=== PATIENT | female | born 1930 | race Caucasian/White ===

== ENCOUNTER → 2017-03-06 | Outpatient (CLI) | payer OTHER ==
[~2017-03-06] MED LIST: ACET-1256 PO; BENA1TAB19 PO; CALC1TAB9 PO; CHOL100040 PO; OXYB5TAB74 PO; POLY99.02 OP; SIMV10TA2 PO
--- NOTE | 2017-03-06 16:07 | MAMMOGRAPHY REPORT ---
BILATERAL DIGITAL SCREENING MAMMOGRAM TOMOSYNTHESIS WITH CAD: 03/06/2017 CLINICAL HISTORY: Routine screening. Patient has no complaints. TECHNIQUE: Breast tomosynthesis in addition to standard 2D mammography was performed. Current study was also evaluated with a Computer Aided Detection (CAD) system. COMPARISON: Comparison is made to exams dated: 03/16/2016 mammogram, 03/03/2016 mammogram, 02/27/2015 m ammogram, 02/26/2014 mammogram, 02/25/2013 mammogram, and 02/23/2012 mammogram - [facility]. BREAST COMPOSITION: There are scattered areas of fibroglandular density in both breasts. FINDINGS: There are mild vascular calcifications and stable punctate microcalcifications in the [place]. No new suspicious mass, architectural distortion or cluster of microcalcifications is seen. IMPRESSION: ACR BI-RADS CATEGORY 1: NEGATIVE There is no mammographic evidence of malignancy. A 1 year screening mammogram is recommended. The pa tient will receive written notification of the results. Approximately 10% of breast cancers are not detected with mammography. A negative mammographic report should not delay biopsy if a clinically suggestive mass is present. Frieda Morris M.D. ay/:03/06/2017 15:24:06 Research Administrator: Nica COLE(Josi)(Erin)(BD), [facility] letter sent: Normal 1/2 BI-RADS Code: ACR BI-RADS Category 1: Negative
== END | disposition home or self-care (01) ==
LOC: C.MAMM 13:23
PROVIDERS: ATTEND Family Medicine
DX: Z12.31 Encounter for screening mammogram for malignant neoplasm of breast (principal)

== ENCOUNTER 2017-05-14 11:14 | Inpatient (IN) | payer OTHER ==
[~2017-05-14] VITALS: Ht 165.1 cm; Wt 73.2 kg
[~2017-05-14 11:14] MED LIST changes: -BENA1TAB19 PO; +BENA1TAB53 PO; -CHOL100040 PO; +DTR/5 PO; -OXYB5TAB74 PO
[2017-05-14 11:18] VITALS: Ht 165.1 cm; Wt 73.2 kg
[2017-05-14] MEDS ORDERED: ACETAMINOPHEN 325 MG TAB PO STA (11:32)
[2017-05-14] MEDS ORDERED: METOCLOPRAMIDE HCL INJ 5 MG/ML 2 ML VIAL IV STA (11:32)
[2017-05-14] MEDS ORDERED: MAGNESIUM SULFATE 1GM / D5W 1 GM BAG IV STA (11:32)
[2017-05-14] MEDS ORDERED: DiphenhydrAMINE HCL 50 MG/ML VIAL IV STA (11:32)
--- NOTE | 2017-05-14 11:54 | EMERGENCY ROOM VISIT NOTE ---
History Report prepared by Lex: Robin Javier Under the Supervision of: Dr. Daren Whelan M.D. First contact with patient: 11:29 Chief Complaint: HEADACHE Stated Complaint: FLASHING IN EYES, RIOS, SLURRED SPEECH, DIFF. SPEAKI History of Present Illness The patient is an 87 year old white female with a past medical history of HTN and asthma who presents to the ED with a cc of worsening ocular migraine beginning last evening. The patient has tried Tylenol, but it has not helped. She typically ambulates and takes care of her on her own. Positive trouble speaking, decreased memory, chronic leg pain that results in intermittent right leg numbness, unsteady walking. Negative seeing flashes anymore, recent fall, missing medication doses, cough, fevers, chills. The patient began showing her associated symptoms 20 hours ago. Source of History: patient Onset: last evening Position: head (ocular) Quality: ache Timing: worsening Associated Symptoms: No fevers, No chills, No cough Note: Associated symptoms: trouble speaking, decreased memory, chronic leg pain that results in intermittent right leg numbness, unsteady walking. Denies: seeing flashes anymore, recent fall, missing medication doses. Review of Systems See HPI for pertinent positives and negatives. A total of ten systems were reviewed and were otherwise negative. Past Medical & Surgical Medical Problems: (1) Asthma (2) HTN (hypertension) (3) Stroke-like symptoms Family History Heart disease Hypertension Social History Smoking Status: Former Smoker Smokeless Tobacco Use: No Alcohol Use: occasionally Drug Use: none Marital Status: Housing Status: lives with significant other Occupation Status: retired Current/Historical Medications Scheduled Benazepril/Hctz (Lotensin Hct), 2 TAB PO QAM Cholecalciferol (Vitamin D-1000), 2 TAB PO DAILY Fluorouracil (Topical) (Fluorouracil), UD Oxybutynin Chloride (Oxybutynin Chloride ER), 5 MG PO DAILY Simvastatin (Simvastatin), 10 MG PO HS Scheduled PRN Acetaminophen (Tylenol), 1,000 MG PO DAILY PRN for Pain Clobetasol Propionate (Temovate), 1 APPLN TOP BID PRN for affected area Miscellaneous Medications Bevacizumab (Avastin) Allergies Coded Allergies: No Known Allergies (Unverified , 06/15/15) Physical Exam Vital Signs Date Time Temp Pulse Resp B/P (MAP) Pulse Ox O2 Delivery O2 Flow Rate FiO2 05/14/17 14:17 68 16 149/61 96 Room Air 05/14/17 12:32 66 16 141/75 95 Room Air 05/14/17 12:15 71 05/14/17 11:42 95 Room Air 05/14/17 11:18 36.5 71 18 153/73 95 Room Air Physical Exam GENERAL: Awake, alert, well-appearing, NAD HENT: Normocephalic, atraumatic. EYES: Normal conjunctiva. Sclera non-icteric. EMOI, gross vision intact, patient does not see floaters or flashing lights. NECK: Supple. No nuchal rigidity. FROM. RESPIRATORY: CTAB, no rhonchi, wheezing, crackles CARDIAC: RRR, no MRG ABDOMEN: Soft, NTND, BS+ MSK: No chest wall TTP, no LE edema NEURO: CN 2-12 intact, 5/5 upper and lower extremity strength, no dysmetria, no drift, good finger to nose, no sensory deficits. Dysarthria and word finding difficulty, ? RUE pronator drift. SKIN: No rash or jaundice noted. Medical Decision & Procedures ER Provider Diagnostic Interpretation: Radiology results as stated below per my review and radiologist interpretation: HEAD CTA HISTORY: HEADACHE TECHNIQUE: Multiaxial CT images of the head were performed both before and after the intravenous administration of contrast to evaluate the major cerebral vessels. Maximum intensity projection images were also obtained. A dose lowering technique was utilized adhering to the principles of ALARA. COMPARISON: None. FINDINGS: There is no mass, hematoma, midline shift, or acute infarct. Mild atrophy and microvascular ischemic changes. Of note, evaluation of the bilateral carotid siphons is nondiagnostic due to the motion artifact. Otherwise, the visualized intracranial internal carotid arteries, distal vertebral arteries, and basilar artery are widely patent. There is no significant stenosis, occlusion, or aneurysm seen within the bilateral ACAs, MCAs, or fish and wildlife technician. IMPRESSION: No significant stenosis, occlusion, or aneurysm within the [place]. Electronically signed by: Rigoberto Stanley M.D. 05/14/2017 1:58 PM Dictated Date/Time: 05/14/2017 1:53 PM NECK CTA HISTORY: Headache. TECHNIQUE: Multiaxial CT images of the neck were performed following the intravenous administration of contrast to evaluate the major cervical vessels. Maximum intensity projection images were also obtained. All measurements were calculated based on NASCET criteria. A dose lowering technique was utilized adhering to the principles of ALARA. COMPARISON STUDY: None. FINDINGS: The aortic arch and proximal great vessels are widely patent. Mild calcified plaque identified within the bilateral carotid bulbs. However, no severe stenosis, occlusion, or dissection within the bilateral common carotid, internal carotid, right vertebral arteries. Mild focal narrowing of approximately 40% within the mid left vertebral artery at the C5 level. IMPRESSION: No significant stenosis, occlusion, or dissection identified within the carotid or right vertebral arteries. Mild focal narrowing within the mid left vertebral the C5 level. Electronically signed by: Rigoberto Stanley M.D. 05/14/2017 2:03 PM Dictated Date/Time: 05/14/2017 1:59 PM CHEST ONE VIEW PORTABLE HISTORY: stroke symptoms COMPARISON: None. FINDINGS: The lungs are mildly hyperexpanded with apical predominance changes. The heart is normal in size. Bilateral lower lung zone interstitial thickening. No focal lung consolidations to suggest pneumonia. No pleural fusions. No pneumothorax. IMPRESSION: Bilateral lower lung zone interstitial thickening. This may be chronic or due to vascular crowding from the suspected emphysema. Otherwise, no acute process within the chest. Electronically signed by: Rigoberto Stanley M.D. 05/14/2017 12:25 PM Dictated Date/Time: 05/14/2017 12:24 PM Laboratory Results 05/14/17 11:25 Red Blood Count 4.29, Mean Corpuscular Volume 94.4, Mean Corpuscular Hemoglobin 32.2, Mean Corpuscular Hemoglobin Concent 34.1, Mean Platelet Volume 9.8, Neutrophils (%) (Auto) 65.5, Lymphocytes (%) (Auto) 20.3, Monocytes (%) (Auto) 9.3, Eosinophils (%) (Auto) 4.3, Basophils (%) (Auto) 0.4, Neutrophils # (Auto) 3.39, Lymphocytes # (Auto) 1.05, Monocytes # (Auto) 0.48, Eosinophils # (Auto) 0.22, Basophils # (Auto) 0.02 05/14/17 11:25 Test 05/14/17 11:25 05/14/17 11:42 White Blood Count 5.17 K/uL (4.8-10.8) Red Blood Count 4.29 M/uL (4.2-5.4) Hemoglobin 13.8 g/dL (12.0-16.0) Hematocrit 40.5 % (37-47) Mean Corpuscular Volume 94.4 fL (80-100) Mean Corpuscular Hemoglobin 32.2 pg (25-34) Mean Corpuscular Hemoglobin Concent 34.1 g/dl (32-36) Platelet Count 229 K/uL (130-400) Mean Platelet Volume 9.8 fL (7.4-10.4) Neutrophils (%) (Auto) 65.5 % Lymphocytes (%) (Auto) 20.3 % Monocytes (%) (Auto) 9.3 % Eosinophils (%) (Auto) 4.3 % Basophils (%) (Auto) 0.4 % Neutrophils # (Auto) 3.39 K/uL (1.4-6.5) Lymphocytes # (Auto) 1.05 K/uL (1.2-3.4) Monocytes # (Auto) 0.48 K/uL (0.11-0.59) Eosinophils # (Auto) 0.22 K/uL (0-0.5) Basophils # (Auto) 0.02 K/uL (0-0.2) RDW Standard Deviation 42.6 fL (36.4-46.3) RDW Coefficient of Variation 12.5 % (11.5-14.5) Immature Granulocyte % (Auto) 0.2 % Immature Granulocyte # (Auto) 0.01 K/uL (0.00-0.02) Prothrombin Time 10.7 SECONDS (9.0-12.0) Prothromb Time International Ratio 1.0 (0.9-1.1) Activated Partial Thromboplast Time 28.8 SECONDS (21.0-31.0) Partial Thromboplastin Ratio 1.1 Est Creatinine Clear Calc Drug Dose 31.5 ml/min Estimated GFR () 45.5 Estimated GFR (Non- 39.2 BUN/Creatinine Ratio 20.1 (10-20) Calcium Level 8.8 mg/dl (8.5-10.1) Total Bilirubin 0.6 mg/dl (0.2-1) Direct Bilirubin 0.1 mg/dl (0-0.2) Aspartate Amino Transf (AST/SGOT) 16 U/L (15-37) Alanine Aminotransferase (ALT/SGPT) 24 U/L (12-78) Alkaline Phosphatase 60 U/L (45-117) Total Protein 7.7 gm/dl (6.4-8.2) Albumin 3.8 gm/dl (3.4-5.0) Lipase 92 U/L (73-393) Lyme Disease IgG Antibody NEG (NEG) Lyme Disease IgM Antibody NEG (NEG) Bedside Hemoglobin 13.6 g/dl (12.0-16.0) Bedside Hematocrit 40 % (37-47) Bedside Sodium 138 mEq/L (135-144) Bedside Potassium 3.7 mEq/L (3.3-5.0) Bedside Chloride 100 mEq/L (101-112) Bedside Total CO2 27 mEq/l (24-31) Anion Gap 16.0 mmol/L (16-25) Bedside Blood Urea Nitrogen 24 mg/dl (7-18) Bedside Creatinine 1.3 mg/dl (0.6-1.3) Bedside Glucose (other) 97 mg/dl (70-99) Bedside Ionized Calcium ([place]) 1.15 mmol/l (1.12-1.32) Laboratory results reviewed by me Medications Administered Medications (Trade) Dose Ordered Sig/Aron Route Start Time Stop Time Status Last Admin Dose Admin Metoclopramide HCl (Reglan Inj) 10 mg NOW STAT IV 05/14/17 11:32 05/14/17 11:36 DC 05/14/17 11:43 10 MG Diphenhydramine HCl (Benadryl Inj) 25 mg NOW STAT IV 05/14/17 11:32 05/14/17 11:36 DC 05/14/17 11:43 25 MG Magnesium Sulfate (Magnesium Sulfate) 1 gm NOW STAT IV 05/14/17 11:32 05/14/17 11:36 DC 05/14/17 11:42 1 GM Acetaminophen (Tylenol Tab) 650 mg NOW STAT PO 05/14/17 11:32 05/14/17 11:36 DC 05/14/17 11:43 650 MG ECG Indication: other (stroke-like symptoms) Rate (beats per minute): 66 Rhythm: normal sinus Findings: T-wave inversion (lead III), other (normal intervals, pattern is consistent with incomplete RBBB, normal axis, no other STS or TWI) ED Course 1137: The patient was evaluated in room A09B. A complete history and physical exam was performed. 1407: Upon reexamination, the patient was resting, and her headache resolved. I discussed the test results and treatment plan with her. The patient will be evaluated for further management. 1415: I discussed the patient's case [facility] The patient will be evaluated for further management and care. Medical Decision The patient is an 87 year old white female with a past medical history of HTN and asthma who presents to the ED with a cc of worsening ocular migraine beginning last evening.Intracranial hemorrhage, intracranial mass, migraine headache, tension headache, sinusitis, meningitis She was seen and evaluated at the bedside. Per the patient and family member the patient was having was described as an ocular migraine which she has had in the past. Patient did see some flashing lights and stated thereafter had a bad headache. Patient did take some Tylenol which did not do much improved. Symptoms began around 5:00 last evening. Patient states that her headache is improved. But per the daughter the patient still had some word finding difficulties. Patient's neuro exam is fairly unremarkable with the exception of some questionable right upper extremity pronator drift as well as occasional word finding difficulty and dysarthria. Patient has no other issues or concerns. Patient did have blood work that was completed, EKG, chest x-ray, headache cocktail, CT brain, CTA head and neck. Patient as well as the window of getting TPA. The patient's EKG was nonischemic. Troponin negative. Patient's blood work otherwise fairly unremarkable. Her and is still pending. Patient did get a CT of the head and neck but did not get a non-con CT of the brain. Patient's CT of the head negative. Patient's CT neck did show some mild narrowing at around C5 the mid vertebral. Patient's headache had essentially resolved. Unsure as to whether not she had any continued symptoms of dysarthria and word finding difficulty. Given the concern for this and possible complicated migraine versus seizure versus acute or subacute stroke. I did speak with the hospitalist who agreed to evaluate and treat the patient. Medication Reconcilliation Current Medication List: was personally reviewed by me Blood Pressure Screening Patient's blood pressure: Elevated blood pressure Monitored by hospitalist. Consults Time Called: 1410 Consulting Physician: Dr. Berta Tristan Hospitalist Returned Call: [phone] I discussed the patient's case with [facility]. The patient will be evaluated for further management and care. Impression Primary Impression: Migraine Additional Impression: Dysarthria Scribe Attestation The scribe's documentation has been prepared under my direction and personally reviewed by me in its entirety. I confirm that the note above accurately reflects all work, treatment, procedures, and medical decision making performed by me. Departure Information Dispostion Being Evaluated By Hospitalist Referrals Yovani Schwartz M.D. (PCP) Patient Instructions My [facility] [address] Problem Qualifiers Primary Impression: Migraine Migraine type: unspecified Status migrainosus presence: without status migrainosus Intractability: not intractable Qualified Codes: G43.909 - Migraine, unspecified, not intractable, without status migrainosus
[2017-05-14 11:55] LABS: ISTAT CREATININE 1.3 mg/dl (0.6-1.3); ISTAT IONIZED CALCIUM 1.15 mmol/l (1.12-1.32); ISTAT POTASSIUM 3.7 mEq/L (3.3-5.0)
[2017-05-14 11:57] LABS: BASO % 0.4 %; BASO ABS # 0.02 K/uL (0-0.2); EOS % 4.3 %; EOS ABS # 0.22 K/uL (0-0.5); HEMATOCRIT 40.5 % (37-47); HEMOGLOBIN 13.8 g/dL (12.0-16.0); IG# 0.01 K/uL (0.00-0.02); LYMPH % 20.3 %; LYMPH ABS # 1.05 K/uL (1.2-3.4); MEAN CELL VOLUME 94.4 fL (80-100); MEAN CORPUSCULAR HEMOGLOBIN 32.2 pg (25-34); MEAN CORPUSCULAR HGB CONC 34.1 g/dl (32-36); MEAN PLATELET VOLUME 9.8 fL (7.4-10.4); MONO % 9.3 %; MONO ABS # 0.48 K/uL (0.11-0.59); NEUT % 65.5 %; NEUT ABS # 3.39 K/uL (1.4-6.5); PLATELET COUNT 229 K/uL (130-400); RED CELL DISTRIBUTION WIDTH CV 12.5 % (11.5-14.5); RED CELL DISTRIBUTION WIDTH SD 42.6 fL (36.4-46.3); WHITE BLOOD COUNT 5.17 K/uL (4.8-10.8)
[2017-05-14] MEDS ORDERED: OPTIRAY 320 IV PRN (12:00)
[2017-05-14 12:06] LABS: ALBUMIN 3.8 gm/dl (3.4-5.0); CALCIUM 8.8 mg/dl (8.5-10.1); CREATININE 1.22 mg/dl (0.60-1.20); POTASSIUM 3.7 mmol/L (3.5-5.1)
[2017-05-14 12:09] LABS: TOTAL PROTEIN 7.7 gm/dl (6.4-8.2)
[2017-05-14] MEDS ORDERED: NAPR1TAB9 PO (12:16)
--- NOTE | 2017-05-14 12:27 | DIAGNOSTIC IMAGING REPORT ---
CHEST ONE VIEW PORTABLE HISTORY: stroke symptoms COMPARISON: None. FINDINGS: The lungs are mildly hyperexpanded with apical predominance changes. The heart is normal in size. Bilateral lower lung zone interstitial thickening. No focal lung consolidations to suggest pneumonia. No pleural fusions. No pneumothorax. IMPRESSION: Bilateral lower lung zone interstitial thickening. This may be chronic or due to vascular crowding from the suspected emphysema. Otherwise, no acute process within the chest. Electronically signed by: Rigoberto Stanley M.D. 05/14/2017 12:25 PM Dictated Date/Time: 05/14/2017 12:24 PM
[2017-05-14 12:29] LABS: PTT PATIENT 28.8 SECONDS (21.0-31.0)
--- NOTE | 2017-05-14 14:00 | DIAGNOSTIC IMAGING REPORT ---
HEAD CTA HISTORY: HEADACHE TECHNIQUE: Multiaxial CT images of the head were performed both before and after the intravenous administration of contrast to evaluate the major cerebral vessels. Maximum intensity projection images were also obtained. A dose lowering technique was utilized adhering to the principles of ALARA. COMPARISON: None. FINDINGS: There is no mass, hematoma, midline shift, or acute infarct. Mild atrophy and microvascular ischemic changes. Of note, evaluation of the bilateral carotid siphons is nondiagnostic due to the motion artifact. Otherwise, the visualized intracranial internal carotid arteries, distal vertebral arteries, and basilar artery are widely patent. There is no significant stenosis, occlusion, or aneurysm seen within the bilateral ACAs, MCAs, or manager performance. IMPRESSION: No significant stenosis, occlusion, or aneurysm within the [place]. Electronically signed by: Rigoberto Stanley M.D. 05/14/2017 1:58 PM Dictated Date/Time: 05/14/2017 1:53 PM
--- NOTE | 2017-05-14 14:05 | DIAGNOSTIC IMAGING REPORT ---
NECK CTA HISTORY: Headache. TECHNIQUE: Multiaxial CT images of the neck were performed following the intravenous administration of contrast to evaluate the major cervical vessels. Maximum intensity projection images were also obtained. All measurements were calculated based on NASCET criteria. A dose lowering technique was utilized adhering to the principles of ALARA. COMPARISON STUDY: None. FINDINGS: The aortic arch and proximal great vessels are widely patent. Mild calcified plaque identified within the bilateral carotid bulbs. However, no severe stenosis, occlusion, or dissection within the bilateral common carotid, internal carotid, right vertebral arteries. Mild focal narrowing of approximately 40% within the mid left vertebral artery at the C5 level. IMPRESSION: No significant stenosis, occlusion, or dissection identified within the carotid or right vertebral arteries. Mild focal narrowing within the mid left vertebral the C5 level. Electronically signed by: Rigoberto Stanley M.D. 05/14/2017 2:03 PM Dictated Date/Time: 05/14/2017 1:59 PM
[2017-05-14 15:35] VITALS: BP 158/73; PULSE 65; TEMP 36.6; O2SAT 95; BMI 27.1
--- NOTE | 2017-05-14 15:35 | NUR ---
A/ID: 87 year old female in ED. c/o headache. NIH = 0. Passed dysphagia screen in ED. Possible admission/observation. Admission Assessment done. Code Word/Fall Agreement reviewed with patient and daughter and completed. Continued care in ED by MARCELLE Romero.
[2017-05-14] MEDS ORDERED: [UNRECOGNIZED DRUG - CODE] (15:41)
[2017-05-14] MEDS ORDERED: PHARMACIST DISCHARGE MED REC CONSULT PRN (15:45)
--- NOTE | 2017-05-14 15:49 | History and Physical ---
History & Physical Date & Time of Service: May 14, 2017 at 15:48 Chief Complaint: Flashing In Eyes, Broderick, Slurred Speech, Diff. Speaki Primary Care Physician: Yovani Schwartz M.D. History of Present Illness Source: patient, family, clinic records, hospital records 87 year old female with a past medical history of HTN, asthma, migraine presents to the ED with c/o of worsening ocular migraine that starting last night. Pt said that she has been having severe headache associated with vision disturbance. She said that headache located in her frontal area, 10/10, squeezing like. She said that she does have history of migraine associated with vision flashing, but she said that this episode is worst than her usual one. Pt said that she also had a difficulty to formulate world. Daughter said that her speech was gargle. Pt said that she took tylenol for the headache with no relief. She typically ambulates and takes care of her on her own. but lately she has been feeling weak, decreased memory. She does complaint of chronic right LE pain that seems to get worst and associated with numbness. Denies any chest pain, palpitation, dizziness, dysuria, palpitation and SOB. Past Medical/Surgical History Medical Problems: (1) Asthma Status: Chronic (2) HTN (hypertension) Status: Chronic Family History Heart disease Hypertension Social History Smoking Status: Former Smoker Smokeless Tobacco Use: No Drug Use: none Marital Status: Occupational Status: retired Multi-Drug Resistant Organisms History of MDRO: No Allergies Coded Allergies: No Known Allergies (Unverified , 06/15/15) Home Medications Scheduled Benazepril/Hctz (Lotensin Hct), 2 TAB PO QAM Cholecalciferol (Vitamin D-1000), 2 TAB PO DAILY Fluorouracil (Topical) (Fluorouracil), UD Oxybutynin Chloride (Oxybutynin Chloride ER), 5 MG PO DAILY Simvastatin (Simvastatin), 10 MG PO HS Scheduled PRN Acetaminophen (Tylenol), 1,000 MG PO DAILY PRN for Pain Clobetasol Propionate (Temovate), 1 APPLN TOP BID PRN for affected area Miscellaneous Medications Bevacizumab (Avastin) Review of Systems Constitutional: No fever, No chills Eyes: + worsening of vision, No discharge ENT: No nasal symptoms, No sore throat Respiratory: No cough, No sputum, No wheezing, No shortness of breath Cardiovascular: No chest pain, No claudication, No palpitations Abdomen: No pain, No nausea, No vomiting Musculoskeletal: + joint pain, No calf pain Genitourinary - Female: No dysuria, No urinary frequency Neurologic: + memory loss, + weakness, + numbness/tingling, + balance problems Psychiatric: No substance abuse Endocrine: + fatigue Hematologic / Lymphatic: No abnormal bleeding/bruising Integumentary: No rash, No itch Physical Exam Vital Signs Date Time Temp Pulse Resp B/P (MAP) Pulse Ox O2 Delivery O2 Flow Rate FiO2 05/14/17 14:17 68 16 149/61 96 Room Air 05/14/17 12:32 66 16 141/75 95 Room Air 05/14/17 12:15 71 05/14/17 11:42 95 Room Air 05/14/17 11:18 36.5 71 18 153/73 95 Room Air General Appearance: WD/WN, no apparent distress Head: normocephalic, atraumatic Eyes: PERRL, EOMI ENT: normal ENT inspection Neck: no JVD, trachea midline Respiratory/Chest: lungs clear, no respiratory distress, no accessory muscle use Cardiovascular: regular rate, rhythm, no JVD Abdomen/GI: normal bowel sounds, non tender Back: no CVA tenderness Extremities/Musculoskelatal: no calf tenderness Neurologic/Psych: no motor/sensory deficits, alert, oriented x 3 Skin: warm/dry, no rash Diagnostics Laboratory Results Results Past 24 Hours Test 05/14/17 11:25 05/14/17 11:32 05/14/17 11:42 05/14/17 14:04 Range/Units White Blood Count 5.17 4.8-10.8 K/uL Red Blood Count 4.29 4.2-5.4 M/uL Hemoglobin 13.8 12.0-16.0 g/dL Hematocrit 40.5 37-47 % Mean Corpuscular Volume 94.4 80-100 fL Mean Corpuscular Hemoglobin 32.2 25-34 pg Mean Corpuscular Hemoglobin Concent 34.1 32-36 g/dl Platelet Count 229 130-400 K/uL Mean Platelet Volume 9.8 7.4-10.4 fL Neutrophils (%) (Auto) 65.5 % Lymphocytes (%) (Auto) 20.3 % Monocytes (%) (Auto) 9.3 % Eosinophils (%) (Auto) 4.3 % Basophils (%) (Auto) 0.4 % Neutrophils # (Auto) 3.39 1.4-6.5 K/uL Lymphocytes # (Auto) 1.05 1.2-3.4 K/uL Monocytes # (Auto) 0.48 0.11-0.59 K/uL Eosinophils # (Auto) 0.22 0-0.5 K/uL Basophils # (Auto) 0.02 0-0.2 K/uL RDW Standard Deviation 42.6 36.4-46.3 fL RDW Coefficient of Variation 12.5 11.5-14.5 % Immature Granulocyte % (Auto) 0.2 % Immature Granulocyte # (Auto) 0.01 0.00-0.02 K/uL Prothrombin Time 10.7 9.0-12.0 SECONDS Prothromb Time International Ratio 1.0 0.9-1.1 Activated Partial Thromboplast Time 28.8 21.0-31.0 SECONDS Partial Thromboplastin Ratio 1.1 Sodium Level 137 136-145 mmol/L Potassium Level 3.7 3.5-5.1 mmol/L Chloride Level 101 98-107 mmol/L Carbon Dioxide Level 28 21-32 mmol/L Anion Gap 8.0 16.0 16-25 mmol/L Blood Urea Nitrogen 25 7-18 mg/dl Creatinine 1.22 0.60-1.20 mg/dl Est Creatinine Clear Calc Drug Dose 31.5 ml/min Estimated GFR () 45.5 Estimated GFR (Non- 39.2 BUN/Creatinine Ratio 20.1 10-20 Random Glucose 98 70-99 mg/dl Calcium Level 8.8 8.5-10.1 mg/dl Total Bilirubin 0.6 0.2-1 mg/dl Direct Bilirubin 0.1 0-0.2 mg/dl Aspartate Amino Transf (AST/SGOT) 16 15-37 U/L Alanine Aminotransferase (ALT/SGPT) 24 12-78 U/L Alkaline Phosphatase 60 45-117 U/L Total Protein 7.7 6.4-8.2 gm/dl Albumin 3.8 3.4-5.0 gm/dl Lipase 92 73-393 U/L Lyme Disease IgG Antibody NEG NEG Lyme Disease IgM Antibody NEG NEG Bedside Hemoglobin 13.6 12.0-16.0 g/dl Bedside Hematocrit 40 37-47 % Bedside Sodium 138 135-144 mEq/L Bedside Potassium 3.7 3.3-5.0 mEq/L Bedside Chloride 100 101-112 mEq/L Bedside Total CO2 27 24-31 mEq/l Bedside Blood Urea Nitrogen 24 7-18 mg/dl Bedside Creatinine 1.3 0.6-1.3 mg/dl Bedside Glucose (other) 97 70-99 mg/dl Bedside Ionized Calcium (Bartolome) 1.15 1.12-1.32 mmol/l Test 05/14/17 15:44 Range/Units Diagnostic Radiology HEAD CTA HISTORY: HEADACHE TECHNIQUE: Multiaxial CT images of the head were performed both before and after the intravenous administration of contrast to evaluate the major cerebral vessels. Maximum intensity projection images were also obtained. A dose lowering technique was utilized adhering to the principles of ALARA. COMPARISON: None. FINDINGS: There is no mass, hematoma, midline shift, or acute infarct. Mild atrophy and microvascular ischemic changes. Of note, evaluation of the bilateral carotid siphons is nondiagnostic due to the motion artifact. Otherwise, the visualized intracranial internal carotid arteries, distal vertebral arteries, and basilar artery are widely patent. There is no significant stenosis, occlusion, or aneurysm seen within the bilateral ACAs, MCAs, or manager council. IMPRESSION: No significant stenosis, occlusion, or aneurysm within the picayune of Hernandez. Electronically signed by: Rigoberto Stanley M.D. 05/14/2017 1:58 PM Dictated Date/Time: 05/14/2017 1:53 PM [~ rep ct add3]] NECK CTA HISTORY: Headache. TECHNIQUE: Multiaxial CT images of the neck were performed following the intravenous administration of contrast to evaluate the major cervical vessels. Maximum intensity projection images were also obtained. All measurements were calculated based on NASCET criteria. A dose lowering technique was utilized adhering to the principles of ALARA. COMPARISON STUDY: None. FINDINGS: The aortic arch and proximal great vessels are widely patent. Mild calcified plaque identified within the bilateral carotid bulbs. However, no severe stenosis, occlusion, or dissection within the bilateral common carotid, internal carotid, right vertebral arteries. Mild focal narrowing of approximately 40% within the mid left vertebral artery at the C5 level. IMPRESSION: No significant stenosis, occlusion, or dissection identified within the carotid or right vertebral arteries. Mild focal narrowing within the mid left vertebral the C5 level. Electronically signed by: Rigoberto Stanley M.D. 05/14/2017 2:03 PM Dictated Date/Time: 05/14/2017 1:59 PM Impression Assessment and Plan Stroke like symptoms Possible related to migraine vs TIA CTA head showed no significant stenosis, occlusion, or dissection identified within the carotid or right vertebral arteries. No focal neuro deficit on exam Will get an MRI of the head for completion of the stroke work up Will do neuro check EKG showed NSR with no ST changes Start on aspirin 81 I cannot find any echo on her will get an echo No Plavix for now Continue statin Neuro consult PT/OT/speech Monitor in telemetry fall preacution Headache Will do tylenol PRN Check ESR CKD stage 3 Creatine 1.2 Continue monitor BMP HTN Continue BP meds Monitor BP Asthma No on any med Stable Dyslipidemia Continue statin DVT px on heparin sub CODE STATUS FULL CODE Level of Care Telemetry Resuscitation Status FULL RESUSCITATION VTE Prophylaxis VTE Risk Assessment Done? Y/N: Yes Risk Level: Moderate Given or contraindicated: Unfractionated heparin SQ
[2017-05-14 15:54] VITALS: O2SAT 95
--- NOTE | 2017-05-14 16:28 | NUR ---
A: Patient arrived to floor via litter by ed rn. VSS. Alert and oriented X4. Oriented to room and equipment. Monitor on. Daughter at bedside. Call hylton within reach. Verbalizes no needs at this time.
[2017-05-14] MEDS ORDERED: INFLUENZA VACCINE HIGH DOSE 65+ 0.5 ML SYR IM. ONE (18:15)
[2017-05-14] MEDS ORDERED: INFLUENZA ADMINISTRATION CHARGE ONE (18:15)
[2017-05-14] MEDS ORDERED: INFLUENZA VIRUS QUAD VACCINE 0.5 ML SYR IM. ONE (18:30)
[2017-05-14 19:17] VITALS: BP 172/77; PULSE 66; TEMP 36.5; O2SAT 97
--- NOTE | 2017-05-14 20:00 | NUR ---
A: Pt is AAO x 4, VSS on RA. OOB with supervision. NSR on monitor. No c/o chest pain, headache, or SOB. NIH Stroke scale is 0. Awaiting to go down for MRI. Will continue to monitor.
[2017-05-14] MEDS ORDERED: SIMVASTATIN 10 MG TAB PO SCH (21:00)
[2017-05-15] VITALS (7 sets, daily range): BP systolic 158–167; BP diastolic 65–86; PULSE 19–111; TEMP 36.2–36.6; O2SAT 91–96
--- NOTE | 2017-05-15 | NUR ---
A/ID: Pt is sleeping in bed, upon assessment. AAO x 4, VSS on RA. OOB with supervision. NSR on monitor. No c/o chest pain, headache, or SOB. NIH Stroke scale is 0. Anticipate to return home when medically stable. Will continue to monitor.
--- NOTE | 2017-05-15 04:00 | NUR ---
A: Pt is sleeping in bed, upon assessment. AAO x 4, VSS on RA. OOB with supervision. NSR on monitor. No c/o chest pain, headache, or SOB. NIH Stroke scale is 0. Will continue to monitor.
[2017-05-15 05:54] LABS: BASO % 0.9 %; BASO ABS # 0.04 K/uL (0-0.2); EOS ABS # 0.26 K/uL (0-0.5); HEMATOCRIT 38.2 % (37-47); HEMOGLOBIN 13.4 g/dL (12.0-16.0); IG# 0.01 K/uL (0.00-0.02); LYMPH % 25.4 %; MEAN CELL VOLUME 94.8 fL (80-100); MEAN CORPUSCULAR HEMOGLOBIN 33.3 pg (25-34); MEAN CORPUSCULAR HGB CONC 35.1 g/dl (32-36); MEAN PLATELET VOLUME 9.2 fL (7.4-10.4); MONO % 10.9 %; MONO ABS # 0.47 K/uL (0.11-0.59); NEUT % 56.6 %; NEUT ABS # 2.45 K/uL (1.4-6.5); PLATELET COUNT 194 K/uL (130-400); RED CELL DISTRIBUTION WIDTH CV 12.4 % (11.5-14.5); RED CELL DISTRIBUTION WIDTH SD 42.2 fL (36.4-46.3); WHITE BLOOD COUNT 4.33 K/uL (4.8-10.8)
--- NOTE | 2017-05-15 06:30 | DIAGNOSTIC IMAGING REPORT ---
BRAIN WITHOUT CONTRAST HISTORY: Mental status change Stroke like symptoms TECHNIQUE: Multiplanar multisequence MRI of the brain was performed without the use of contrast. COMPARISON STUDY: None. FINDINGS: There are no areas of restricted diffusion to suggest acute infarction. The midline structures are intact. The paranasal sinuses are clear. The mastoid air cells are clear. The ventricles and sulci are within normal limits for age. There is no mass, hematoma, midline shift. The major vascular flow-voids at the skull base are well maintained. Mild age-related atrophy and chronic small vessel change IMPRESSION: No acute intracranial abnormality. Mild age-related atrophy and chronic small vessel change The above report was generated using voice recognition software. It may contain grammatical, syntax or spelling errors. Electronically signed by: Kofi Schaffer M.D. 05/15/2017 6:28 AM Dictated Date/Time: 05/15/2017 6:26 AM
[2017-05-15 06:31] LABS: CALCIUM 8.7 mg/dl (8.5-10.1); CREATININE 1.07 mg/dl (0.60-1.20); POTASSIUM 3.4 mmol/L (3.5-5.1)
--- NOTE | 2017-05-15 08:00 | NUR ---
A: Patient admitted with stroke like symptoms. A&OX4. Denies pain, SOB, N/V. Skin intact. SL right forearm. Independent in the room. No edema, positive pulses. NSR on the monitor. Lungs are clear on room air. Pt is from home. Denies weakness this morning. Hourly rounding. Encouraged to ring for assistance. Will continue to monitor.
[2017-05-15] MEDS ORDERED: POTASSIUM CHLORIDE 20 MEQ TABCR PO ONE (08:15)
[2017-05-15 08:19] LABS: HEMOGLOBIN A1C 5.5 % (4.5-5.6)
[2017-05-15] MEDS ORDERED: ASPIRIN 81 MG ECTAB PO SCH (09:00)
[2017-05-15] MEDS ORDERED: BENAZEPRIL PO SCH (09:00)
[2017-05-15] MEDS ORDERED: HCTZ PO SCH (09:00)
[2017-05-15] MEDS ORDERED: ENALAPRIL MALEATE 10 MG TAB PO SCH (09:00)
[2017-05-15] MEDS ORDERED: OXYBUTYNIN CHLORIDE 5 MG TABCR PO SCH (09:00)
[2017-05-15] MEDS ORDERED: CHOLECALCIFEROL 1000 INTER.UNIT TAB PO SCH (09:00)
[2017-05-15] MEDS ORDERED: HYDROCHLOROTHIAZIDE 25 MG TAB PO SCH (09:00)
[2017-05-15] MEDS ORDERED: PERFLUTREN LIPID MICROSPHERE (DEFINITY) IV ONE (09:29)
--- NOTE | 2017-05-15 11:01 | NUR ---
Pastoral Care, consult received indicating druze beliefs affecting care. Spoke with pt and daughter. Pt is Baptism, belongs to [facility] [employer]. Pt undergoing tests, hopes to go home soon. I introduced our service, offered spiritual and emotional support, and assured them of my continuing availability and prayers on her behalf.
--- NOTE | 2017-05-15 12:00 | NUR ---
A: Patient is resting comfortably. A&OX4. Denies pain, SOB, N/V. Assessment complete, unchanged, see EMR. NSR on the monitor. No s/s of stroke this afternoon. Daughter is present. Hourly rounding. Encouraged to ring for assistance. Will continue to monitor.
[2017-05-15] MEDS ORDERED: CLONIDINE HCL 0.1 MG TAB PO PRN (13:30)
--- NOTE | 2017-05-15 13:52 | Progress Note ---
Medicine Progress Note Date & Time of Visit: May 15, 2017 at 13:28. Subjective Pt was seen and examined Sitting in chair comfortable with daughter at bedside Pt said that she feels fine She said that she does not have any headache She denies any vision changes She said that her speech back to normal She would like to go home today Denies any chest pain, palpitation, dizziness and SOB Objective Last 8 Hrs Date Time Temp Pulse Resp B/P (MAP) Pulse Ox O2 Delivery O2 Flow Rate FiO2 05/15/17 12:00 Room Air 05/15/17 11:07 36.3 111 20 167/84 (111) 94 05/15/17 08:00 Room Air 05/15/17 07:51 36.4 71 20 164/84 (110) 94 Physical Exam: General- No acute distress Head- atraumatic Eyes- PERRL, EOMI ENT- oropharynx clear Neck- supple, no JVD Lungs- clear to auscultation Heart- regular rhythm Abdomen- normal bowel sounds, soft, nontender Extremities- no pretibial edema, no calf tenderness Neuro- alert, oriented x 3; PERRL, EOMI; no facial palsy; no dysarthria; motor 5 /5 bilaterally Skin- warm & dry Laboratory Results: Last 24 Hours Test 05/14/17 15:30 05/15/17 05:38 Urine Color YELLOW Urine Appearance CLEAR Urine pH 6.5 Urine Specific Thida 1.039 Urine Protein NEG Urine Glucose (UA) NEG Urine Ketones NEG Urine Occult Blood NEG Urine Nitrite NEG Urine Bilirubin NEG Urine Urobilinogen NEG Urine Leukocyte Esterase NEG White Blood Count 4.33 K/uL Red Blood Count 4.03 M/uL Hemoglobin 13.4 g/dL Hematocrit 38.2 % Mean Corpuscular Volume 94.8 fL Mean Corpuscular Hemoglobin 33.3 pg Mean Corpuscular Hemoglobin Concent 35.1 g/dl Platelet Count 194 K/uL Mean Platelet Volume 9.2 fL Neutrophils (%) (Auto) 56.6 % Lymphocytes (%) (Auto) 25.4 % Monocytes (%) (Auto) 10.9 % Eosinophils (%) (Auto) 6.0 % Basophils (%) (Auto) 0.9 % Neutrophils # (Auto) 2.45 K/uL Lymphocytes # (Auto) 1.10 K/uL Monocytes # (Auto) 0.47 K/uL Eosinophils # (Auto) 0.26 K/uL Basophils # (Auto) 0.04 K/uL RDW Standard Deviation 42.2 fL RDW Coefficient of Variation 12.4 % Immature Granulocyte % (Auto) 0.2 % Immature Granulocyte # (Auto) 0.01 K/uL Erythrocyte Sedimentation Rate 18 mm/hr Sodium Level 138 mmol/L Potassium Level 3.4 mmol/L Chloride Level 103 mmol/L Carbon Dioxide Level 26 mmol/L Anion Gap 9.0 mmol/L Blood Urea Nitrogen 21 mg/dl Creatinine 1.07 mg/dl Est Creatinine Clear Calc Drug Dose 35.9 ml/min Estimated GFR () 53.3 Estimated GFR (Non- 46.0 BUN/Creatinine Ratio 19.3 Random Glucose 95 mg/dl Estimated Average Glucose 111 mg/dl Hemoglobin A1c 5.5 % Calcium Level 8.7 mg/dl Triglycerides Level 126 mg/dl Cholesterol Level 172 mg/dl HDL Cholesterol 67 mg/dl LDL Cholesterol, Calculated 80 mg/dl VLDL Cholesterol, Calculated 25 mg/dl Cholesterol/HDL Ratio 2.6 Assessment & Plan Stroke like symptoms Mostly related to migraine CTA head showed no significant stenosis, occlusion, or dissection identified within the carotid or right vertebral arteries. MRI showed no acute intracranial abnormality No focal neuro deficit on exam during admission No arrhythmia on tele monitor EKG showed NSR with no ST changes Continue aspirin 81 and statin Continue PT/OT Fall precaution No Plavix for now Neuro consulted Clinically back to her baseline ECHO done showed * The left ventricular wall motion is normal. * There is mild concentric left ventricular hypertrophy. * Ejection Fraction = 65-70%. * Aortic valve sclerosis mild, without significant aortic valvular stenosis. * Otherwise , there is no signifiant valvular heart disease. Headache ESR normal Tylenol PRN Resolved CKD stage 3 Creatine 1.07 Stable HTN BP elevated Continue BP meds Clonidine 0.1 prn for BP above 165 Monitor BP Asthma No on any med Stable Dyslipidemia Continue statin DVT px on heparin sub CODE STATUS FULL CODE Disposition Plan to discharge home today Follow up with your PCP Dr. Schwartz on 05/18 @ 12:45 PM Consultants: neuro Current Inpatient Medications: Current Inpatient Medications Medications (Trade) Dose Ordered Sig/Aron Route Start Time Stop Time Status Last Admin Dose Admin Ioversol (Optiray 320) 111 ml UD PRN IV 05/14/17 12:00 05/18/17 11:59 Cholecalciferol (Vitamin D Tab) 2,000 inter.unit DAILY PO 05/15/17 09:00 06/14/17 08:59 05/15/17 07:47 2,000 INTER.UNIT Oxybutynin Chloride (Ditropan-Xl Tab) 5 mg DAILY PO 05/15/17 09:00 06/14/17 08:59 05/15/17 07:47 5 MG Simvastatin (Zocor Tab) 10 mg HS PO 05/14/17 21:00 06/13/17 20:59 05/14/17 20:41 10 MG Miscellaneous Information (Pharmacist Discharge Med Rec Consult) 1 ea UD PRN N/A 05/14/17 15:45 06/13/17 15:44 Enalapril Maleate (Vasotec Tab) 40 mg QAM PO 05/15/17 09:00 06/14/17 08:59 05/15/17 07:46 40 MG Hydrochlorothiazide (Hydrochlorothiazide Tab) 25 mg QAM PO 05/15/17 09:00 06/14/17 08:59 05/15/17 07:46 25 MG Aspirin (Ecotrin Tab) 81 mg QAM PO 05/15/17 09:00 06/14/17 08:59 05/15/17 08:10 81 MG Heparin Sodium (Porcine) (Heparin Sq 5000 Unit/0.5ml) 5,000 unit Q8 SQ 05/15/17 14:00 06/14/17 13:59
[2017-05-15] MEDS ORDERED: HEPARIN SOD 5000 UNIT/0.5 ML CARP SQ SCH (14:00)
--- NOTE | 2017-05-15 14:11 | NUR ---
Case Management- Consult for discharge planning, met with pt and daughter Marily to discuss needs. Pt lives with her in 1 story condo, no stairs. 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 Pt reports she ambulates with a cane on occasion, continues to drive. At this time pt and daughter feel she is able to return home without services, they have considered a slight increase in private duty hours when pt returns home. No needs identified thus far, pt is hopeful she will be discharged this afternoon.
--- NOTE | 2017-05-15 15:50 | NUR ---
A: Patient resting in room.Denies CP or SOB. Alert and oriented X4. VSS. NIH = 0. Tolerating diet. OOB independently. Call hylton within reach. Verbalizes no needs at this time.
--- NOTE | 2017-05-15 16:55 | ECHOCARDIOGRAM REPORT ---
*NOTICE TO RECEIVING [employer] This information is strictly Confidential and protected under [place] law. [place] law prohibits you from making any further disclosure of this information unless further disclosure is expressly permitted by the written consent of the person to whom it pertains or is authorized by law. A general authorization for the release of medical or other information is not sufficient for this purpose. Hospital accepts no responsibility if the information is made available to any other person, INCLUDING THE PATIENT. Interpretation Summary * The study was technically adequate. * -- Conclusions -- * The left ventricular wall motion is normal. * There is mild concentric left ventricular hypertrophy. * Ejection Fraction = 65-70%. * Aortic valve sclerosis mild, without significant aortic valvular stenosis. * Otherwise , there is no signifiant valvular heart disease. Procedure Details * A saline contrast injection was performed to assess for cardiac shunting. * The injection was performed through an intravenous line in the right arm. * The attending nurse who injected the saline contrast was MARCELLE DUNHAM. * A total of 10 cc of agitated saline was given. * A contrast injection of Definity was performed to improve assessment of LV function. * Contrast was injected into an intravenous site in the right arm. * One vial of Definity ultrasound contrast was diluted in normal saline to a total volume of 10 ml. A total of '2' ml of solution was administered during imaging. * Lot # [id number] of Definity utilized for procedure. * Expiration date JUN 05. * The attending nurse who injected the contrast agent was MARCELLE DUNHAM. * A complete two-dimensional transthoracic echocardiogram was performed (2D, M-mode, Doppler and color flow Doppler). Left Ventricle * The left ventricle is normal in size. * There is no LV mural thrombus. * There is mild concentric left ventricular hypertrophy. * Left ventricular systolic function is normal. * Ejection Fraction = 65-70%. * The left ventricular wall motion is normal. Right Ventricle * The right ventricle is normal size. * The right ventricular systolic function is normal as assessed by tricuspid annular plane systolic excursion (TAPSE) (normal >1.5 cm). Atria * The left atrial size is normal. * Right atrial size is normal. * There is no evidence of atrial septal defect, but resolution does not allow assessment for a patent foramen ovale. Mitral Valve * The mitral valve is normal. * There is no mitral valve stenosis. * Significant mitral regurgitation is absent. Tricuspid Valve * The tricuspid valve is normal. * There is no tricuspid stenosis. * Significant tricuspid regurgitation is absent. * Doppler findings do not suggest pulmonary hypertension. Aortic Valve * The aortic valve is trileaflet. * Aortic valve sclerosis mild, without significant aortic valvular stenosis. * Aortic stenosis is absent. * There is no significant aortic regurgitation. Pulmonic Valve * The pulmonary valve is inadequately visualized, but the Doppler data is adequate for interpretation. * Pulmonic stenosis is absent. * Mild pulmonic valvular regurgitation. Great Vessels * The aortic root and proximal ascending aorta are normal sized. Pericardium/Pleural * There is no pericardial effusion. Great Vessels * Normal inferior vena cava diameter and respiratory variation suggests normal central venous pressure. Left Ventricular Diastolic Function * Grade I diastolic dysfunction, (abnormal relaxation pattern). MMode 2D Measurements and Calculations IVSd 1.2 cm IVSs 2.0 cm LVIDd 3.4 cm LVIDs 1.8 cm LVPWd 1.3 cm LVPWs 2.3 cm IVS/LVPW 0.92 FS 47.4 % EDV(Teich) 46.9 ml ESV(Teich) 9.4 ml EF(Teich) 79.9 % EDV(cubed) 38.7 ml ESV(cubed) 5.6 ml EF(cubed) 85.5 % % IVS thick 66.1 % % LVPW thick 76.6 % LV mass(C)d 134.0 grams LV mass(C)dI 74.3 grams/m\S\2 LV mass(C)s 174.9 grams LV mass(C)sI 97.0 grams/m\S\2 SV(Teich) 37.5 ml SI(Teich) 20.8 ml/m\S\2 SV(cubed) 33.1 ml SI(cubed) 18.4 ml/m\S\2 Ao root diam 2.4 cm Ao root area 4.4 cm\S\2 LA dimension 3.3 cm LA/Ao 1.4 LVAd ap4 21.7 cm\S\2 LVLd ap4 7.1 cm EDV(MOD-sp4) 54.7 ml EDV(sp4-el) 56.2 ml LVAs ap4 10.6 cm\S\2 LVLs ap4 6.4 cm ESV(MOD-sp4) 15.6 ml ESV(sp4-el) 15.0 ml EF(MOD-sp4) 71.6 % EF(sp4-el) 73.4 % LVAd ap2 15.9 cm\S\2 LVLd ap2 6.9 cm EDV(MOD-sp2) 30.7 ml EDV(sp2-el) 31.0 ml LVAs ap2 8.2 cm\S\2 LVLs ap2 6.3 cm ESV(MOD-sp2) 10.9 ml ESV(sp2-el) 9.0 ml EF(MOD-sp2) 64.3 % EF(sp2-el) 70.9 % LVLd %diff -2.89 % EDV(MOD-bp) 41.7 ml LVLs %diff -0.85 % ESV(MOD-bp) 12.7 ml EF(MOD-bp) 69.4 % SV(MOD-sp4) 39.2 ml SI(MOD-sp4) 21.7 ml/m\S\2 SV(MOD-sp2) 19.7 ml SI(MOD-sp2) 10.9 ml/m\S\2 SV(MOD-bp) 28.9 ml SI(MOD-bp) 16.0 ml/m\S\2 SV(sp4-el) 41.3 ml SI(sp4-el) 22.9 ml/m\S\2 SV(sp2-el) 22.0 ml SI(sp2-el) 12.2 ml/m\S\2 Doppler Measurements and Calculations MV E max goldie 93.8 cm/sec MV A max goldie 98.7 cm/sec MV E/A 0.95 MV dec time 0.26 sec Ao V2 max 182.3 cm/sec Ao max PG 13.3 mmHg Ao max PG (full) 8.1 mmHg Ao V2 mean 121.2 cm/sec Ao mean PG 6.7 mmHg Ao mean PG (full) 4.2 mmHg Ao V2 VTI 42.1 cm LV V1 max PG 5.2 mmHg LV V1 mean PG 2.6 mmHg LV V1 max 113.8 cm/sec LV V1 mean 72.4 cm/sec LV V1 VTI 31.2 cm SV(Ao) 187.0 ml SI(Ao) 103.6 ml/m\S\2 TR max goldie 204.5 cm/sec
[2017-05-15] MEDS ORDERED: ASPI-320 PO (17:16)
--- NOTE | 2017-05-15 17:19 | Discharge Instructions ---
Discharge Instructions Date of Service May 15, 2017. Admission Reason for Admission: Stroke-Like Symptoms Discharge Discharge Diagnosis / Problem: Migraine/ Stroke like symptoms/ Hypertension Discharge Goals Goal(s): Decrease discomfort, Improve function, Improve disease control Activity Recommendations Activity Limitations: resume your previous activity (as tolerated ) . Instructions / Follow-Up Instructions / Follow-Up Discharge home today Follow up with your primary care provider Dr. Schwartz on 05/18 @ 12:45 PM Fall precaution Continue Physical therapy Use a walker to ambulate Monitor blood pressure Current Hospital Diet Patient's current hospital diet: AHA Diet (Heart Healthy) Discharge Diet Recommended Diet: AHA Diet (Heart Healthy) Pending Studies Studies pending at discharge: no Laboratory Results Hemoglobin A1c Test 05/15/17 05:38 Range/Units Estimated Average Glucose 111 mg/dl Hemoglobin A1c 5.5 4.5-5.6 % Lipid Panel Test 05/15/17 05:38 Range/Units Triglycerides Level 126 0-150 mg/dl Cholesterol Level 172 0-200 mg/dl HDL Cholesterol 67 mg/dl Cholesterol/HDL Ratio 2.6 LDL Cholesterol, Calculated 80 mg/dl Medical Emergencies . Who to Call and When: Medical Emergencies: If at any time you feel your situation is an emergency, please call 911 immediately. . Non-Emergent Contact Non-Emergency issues call your: Primary Care Provider Call Non-Emergent contact if: you have any medication questions . . "Provider Documentation" section prepared by Camden Pappas. . VTE Core Measure Inpt VTE Proph given/why not?: Unfractionated heparin SQ
--- NOTE | 2017-05-15 17:58 | NUR ---
A: Patient discharged with all belonging and daughter via wheelchair by volunteer. Discharge instructions given and patient/daughter verbalized understanding. Patient and daughter refused printed prescription for ASA 81mg.
--- NOTE | 2017-05-15 18:18 | CONSULTATION REPORT ---
DATE OF CONSULTATION: 05/15/2017 REQUESTING PHYSICIAN: Camden Pappas MD. HISTORY OF PRESENT ILLNESS: Evelyne is 87 years old patient of Dr. Yovani Schwartz who has a medical history of hypertension, asthma, ocular migraines and presented to the Emergency Room last night after having had a protracted migrainous aura initially manifested by her typical visual auras in the right hemifield but then progressing to involve speech with what sounds like a fluent aphasia and protracted headache. Much of this has cleared. The visual aura cleared quickly within 20-30 minutes as it typically does and language is beginning to clear up and this is not usually a manifestation of her migraines. She had a remote history of an aphasic episode probably 20 years ago without headache and is not clear what this was. Whatever the case, she is now better. The headache is gone. She is still confused. Workup has included an MRI showing only some small vessel disease of chronic type, nothing acute specifically in the left hemisphere. CTA is without any significant intracranial issues or extracranial disease other than a slight narrowing of the left vertebral at C5-C6 which is not relevant and an echocardiogram is pending. In addition to her other medical problems, she does have macular degeneration and needs injections done every 2 weeks. She has not been on aspirin for various reasons but I assume that one may be the fact that the risk of bleeding with injections is too high. MEDICAL HISTORY: Otherwise unremarkable. SOCIAL HISTORY: Reveals her to be a former smoker. She does not use ethanol. She is and is retired. ALLERGIES: She has allergies to no known medications. MEDICATIONS: Her current scheduled medications include Lotensin, vitamin D, fluorouracil to her various actinic keratoses, oxybutynin and simvastatin. She takes acetaminophen, clobetasol b.i.d. as needed and in the past has taken some nonsteroidal anti-inflammatory agents for pain, but not on a regular basis. REVIEW OF SYSTEMS: Besides the history of present illness, Noncontributory. Reveals no recent systemic illnesses, fevers, sweats, chills. No new issues referable to head, eyes, ears, nose and throat other than ocular migraine and macular degeneration, no cardiovascular, pulmonary, gastrointestinal, genitourinary, or musculoskeletal issues are reported. Neurologically, she is quite sharp, awake, alert, has no history of stroke other than perhaps set aphasic event he had 20 years ago and does have the ocular migraine which she has had on and off for years. None of these are not associated with headaches. There is a family history for same and her daughter. PHYSICAL EXAMINATION: VITAL SIGNS: She had a blood pressure of 149/61, pulse 68, respirations 16. She is well developed, well-nourished and appeared more youthful than her stated age normal. HEAD, EYES, EARS, NOSE AND THROAT: Normal. LUNGS: Clear. CARDIOVASCULAR: No cardiac murmurs. No carotid bruits were heard. ABDOMEN: Soft, nontender. SKIN: Legs were free of edema. There were good peripheral pulses today. NEUROLOGIC: She is awake, alert, oriented in 3 spheres. 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 She can name objects in the room, knows right and left, can repeat, can read, has no visual field cuts, has normal extraocular movements, normal facial motility and strength. Normal facial sensation. There is no drift or pronation sign. No cerebellar dysmetria. No tremor, tics, or choreiform activity. Reflexes are 1+ and symmetrical in lower extremities with her little hypoactive at the ankles. Toes are downgoing. No Pepe's signs are seen. Muscle strength testing had normal sensation, reveals some age dependent drop off of vibratory sense below the knees with proprioception, light touch, temperature and pinprick being largely preserved. At this point, I think this was a protracted migraine which progressed beyond its usual focus in the left posterior hemisphere more anteriorly into the speech area and became associated more of a headache than usual. Normally at her age with this type of history, I would recommend antiplatelet drugs, but we have a woman who gets intraocular or retrobulbar injections every 2 weeks and the risk of bleeding, I think during one of these procedures outweighs any theoretical benefit of antiplatelet drugs in a migraine patient. I have encouraged her; however, that every time she gets an ocular migraine that she probably take at least 2 regular aspirin just to provide some antiplatelet coverage. I think she is going to discharged if the echocardiogram shows no significant abnormalities. I will check back with her tomorrow, but otherwise will sign off the case and I do not think neurology needs to see her regularly unless the migrans become an issue and are becoming more frequent. MO
--- NOTE | 2017-05-17 10:33 | EDITING REQUIRED CODING QUERY ---
CODING QUERY To promote full compliance with coding requirements relating to patient care, provider participation is requested in all cases of investment broker uncertainty. Please assist us with the question(s) below: Coding Question(s): H&P states: Stroke like symptoms Possible related to migraine vs TIA TIA not mentioned again after that. Was this ruled out? Physician's Response(s): __x_ TIA ruled out ___ TIA still a differential diagnosis ___ Other (please specify) Thank you Suha Gloria Principal Diagnosis: "_that condition established after study, to be chiefly responsible for occasioning the admission of the patient to the hospital for care." Co-Existing Principal Diagnosis: "_when two or more diagnoses equally meet the criteria for principal diagnosis as determined by the circumstances of admission, diagnostic work up, and/or therapy provided, and the Alphabetic Index, Tabular List, or another coding guideline does not provide sequencing direction, any one of the diagnoses may be sequenced first." "When the physician has documented what appears to be a current diagnosis in the body of the record, but has not included the diagnosis in the final diagnostic statement, the physician should be asked whether the diagnosis should be added." (Source Coding [facility] 2 QTR90. p3-4)
--- NOTE | 2017-05-18 11:36 | Discharge Summary ---
Discharge Summary Date of Service May 18, 2017. Discharge Summary Admission Date: May 14, 2017 at 15:04 Discharge Date: May 15, 2017 Discharge Disposition: Home Principal Diagnosis: Stroke like symptoms Secondary Diagnoses/Problems: Headache CKD stage 3 HTN Asthma Dyslipidemia Procedures: [~ rep ct add3]] BRAIN WITHOUT CONTRAST HISTORY: Mental status change Stroke like symptoms TECHNIQUE: Multiplanar multisequence MRI of the brain was performed without the use of contrast. COMPARISON STUDY: None. FINDINGS: There are no areas of restricted diffusion to suggest acute infarction. The midline structures are intact. The paranasal sinuses are clear. The mastoid air cells are clear. The ventricles and sulci are within normal limits for age. There is no mass, hematoma, midline shift. The major vascular flow-voids at the skull base are well maintained. Mild age-related atrophy and chronic small vessel change IMPRESSION: No acute intracranial abnormality. Mild age-related atrophy and chronic small vessel change The above report was generated using voice recognition software. It may contain grammatical, syntax or spelling errors. Electronically signed by: Kofi Schaffer M.D. 05/15/2017 6:28 AM Dictated Date/Time: 05/15/2017 6:26 AM CHEST ONE VIEW PORTABLE HISTORY: stroke symptoms COMPARISON: None. FINDINGS: The lungs are mildly hyperexpanded with apical predominance changes. The heart is normal in size. Bilateral lower lung zone interstitial thickening. No focal lung consolidations to suggest pneumonia. No pleural fusions. No pneumothorax. IMPRESSION: Bilateral lower lung zone interstitial thickening. This may be chronic or due to vascular crowding from the suspected emphysema. Otherwise, no acute process within the chest. Electronically signed by: Rigoberto Stanley M.D. 05/14/2017 12:25 PM Dictated Date/Time: 05/14/2017 12:24 PM [~ rep ct add3]] NECK CTA HISTORY: Headache. TECHNIQUE: Multiaxial CT images of the neck were performed following the intravenous administration of contrast to evaluate the major cervical vessels. Maximum intensity projection images were also obtained. All measurements were calculated based on NASCET criteria. A dose lowering technique was utilized adhering to the principles of ALARA. COMPARISON STUDY: None. FINDINGS: The aortic arch and proximal great vessels are widely patent. Mild calcified plaque identified within the bilateral carotid bulbs. However, no severe stenosis, occlusion, or dissection within the bilateral common carotid, internal carotid, right vertebral arteries. Mild focal narrowing of approximately 40% within the mid left vertebral artery at the C5 level. IMPRESSION: No significant stenosis, occlusion, or dissection identified within the carotid or right vertebral arteries. Mild focal narrowing within the mid left vertebral the C5 level. Electronically signed by: Rigoberto Stanley M.D. 05/14/2017 2:03 PM Dictated Date/Time: 05/14/2017 1:59 PM HEAD CTA HISTORY: HEADACHE TECHNIQUE: Multiaxial CT images of the head were performed both before and after the intravenous administration of contrast to evaluate the major cerebral vessels. Maximum intensity projection images were also obtained. A dose lowering technique was utilized adhering to the principles of ALARA. COMPARISON: None. FINDINGS: There is no mass, hematoma, midline shift, or acute infarct. Mild atrophy and microvascular ischemic changes. Of note, evaluation of the bilateral carotid siphons is nondiagnostic due to the motion artifact. Otherwise, the visualized intracranial internal carotid arteries, distal vertebral arteries, and basilar artery are widely patent. There is no significant stenosis, occlusion, or aneurysm seen within the bilateral ACAs, MCAs, or cvicu rn. IMPRESSION: No significant stenosis, occlusion, or aneurysm within the [place]. Electronically signed by: Rigoberto Stanley M.D. 05/14/2017 1:58 PM Dictated Date/Time: 05/14/2017 1:53 PM ECHO Interpretation Summary * The study was technically adequate. * -- Conclusions -- * The left ventricular wall motion is normal. * There is mild concentric left ventricular hypertrophy. * Ejection Fraction = 65-70%. * Aortic valve sclerosis mild, without significant aortic valvular stenosis. * Otherwise , there is no signifiant valvular heart disease. Procedure Details * A saline contrast injection was performed to assess for cardiac shunting. * The injection was performed through an intravenous line in the right arm. * The attending nurse who injected the saline contrast was MARCELLE DUNHAM. * A total of 10 cc of agitated saline was given. * A contrast injection of Definity was performed to improve assessment of LV function. * Contrast was injected into an intravenous site in the right arm. * One vial of Definity ultrasound contrast was diluted in normal saline to a total volume of 10 ml. A total of '2' ml of solution was administered during imaging. * Lot # [id number] of Definity utilized for procedure. * Expiration date JUN 05. * The attending nurse who injected the contrast agent was MARCELLE DUNHAM. * A complete two-dimensional transthoracic echocardiogram was performed (2D, M- mode, Doppler and color flow Doppler). Left Ventricle * The left ventricle is normal in size. * There is no LV mural thrombus. * There is mild concentric left ventricular hypertrophy. * Left ventricular systolic function is normal. * Ejection Fraction = 65-70%. * The left ventricular wall motion is normal. Right Ventricle * The right ventricle is normal size. * The right ventricular systolic function is normal as assessed by tricuspid annular plane systolic excursion (TAPSE) (normal >1.5 cm). Atria * The left atrial size is normal. * Right atrial size is normal. * There is no evidence of atrial septal defect, but resolution does not allow assessment for a patent foramen ovale. Mitral Valve * The mitral valve is normal. * There is no mitral valve stenosis. * Significant mitral regurgitation is absent. Tricuspid Valve * The tricuspid valve is normal. * There is no tricuspid stenosis. * Significant tricuspid regurgitation is absent. * Doppler findings do not suggest pulmonary hypertension. Aortic Valve * The aortic valve is trileaflet. * Aortic valve sclerosis mild, without significant aortic valvular stenosis. * Aortic stenosis is absent. * There is no significant aortic regurgitation. Pulmonic Valve * The pulmonary valve is inadequately visualized, but the Doppler data is adequate for interpretation. * Pulmonic stenosis is absent. * Mild pulmonic valvular regurgitation. Great Vessels * The aortic root and proximal ascending aorta are normal sized. Pericardium/Pleural * There is no pericardial effusion. Great Vessels * Normal inferior vena cava diameter and respiratory variation suggests normal central venous pressure. Left Ventricular Diastolic Function * Grade I diastolic dysfunction, (abnormal relaxation pattern). Consultations: neuro Medication Reconciliation New Medications: Aspirin (Aspirin EC Low Dose) 81 Mg Ectab 81 MG PO QAM for 30 Days Continued Medications: Acetaminophen (Tylenol) 500 Mg Tab 1000 MG PO DAILY PRN for Pain, TAB Benazepril/Hctz (Lotensin Hct) 20 Mg/12.5 Mg Tab 2 TAB PO QAM, TAB Bevacizumab (Avastin) 100 Mg/4 Ml Inj Cholecalciferol (Vitamin D-1000) 1,000 Unit Tab 2 TAB PO DAILY Clobetasol Propionate (Temovate) 0.05 % Cre 1 APPLN TOP BID PRN for affected area, #30 GM 1 Refill Fluorouracil (Topical) (Fluorouracil) 5 % Mo UD Apply up to 4 times a week Oxybutynin Chloride (Oxybutynin Chloride ER) 5 Mg Tabcr 5 MG PO DAILY Simvastatin (Simvastatin) 10 Mg Tab 10 MG PO HS Admission Information HPI (per Admitting provider): 87 year old female with a past medical history of HTN, asthma, migraine presents to the ED with c/o of worsening ocular migraine that starting last night. Pt said that she has been having severe headache associated with vision disturbance. She said that headache located in her frontal area, 10/10, squeezing like. She said that she does have history of migraine associated with vision flashing, but she said that this episode is worst than her usual one. Pt said that she also had a difficulty to formulate world. Daughter said that her speech was gargle. Pt said that she took tylenol for the headache with no relief. She typically ambulates and takes care of her on her own. but lately she has been feeling weak, decreased memory. She does complaint of chronic right LE pain that seems to get worst and associated with numbness. Denies any chest pain, palpitation, dizziness, dysuria, palpitation and SOB. Physical Exam (per Admitting): General Appearance: WD/WN, no apparent distress Head: normocephalic, atraumatic Eyes: PERRL, EOMI ENT: normal ENT inspection Neck: no JVD, trachea midline Respiratory/Chest: lungs clear, no respiratory distress, no accessory muscle use Cardiovascular: regular rate, rhythm, no JVD Abdomen/GI: normal bowel sounds, non tender Back: no CVA tenderness Extremities/Musculoskelatal: no calf tenderness Neurologic/Psych: no motor/sensory deficits, alert, oriented x 3 Skin: warm/dry, no rash Hospital Course Stroke like symptoms Mostly related to migraine CTA head showed no significant stenosis, occlusion, or dissection identified within the carotid or right vertebral arteries. MRI showed no acute intracranial abnormality No focal neuro deficit on exam during admission No arrhythmia on tele monitor EKG showed NSR with no ST changes Continue aspirin 81 and statin Continue PT/OT Fall precaution No Plavix for now Neuro consulted Clinically back to her baseline ECHO done showed * The left ventricular wall motion is normal. * There is mild concentric left ventricular hypertrophy. * Ejection Fraction = 65-70%. * Aortic valve sclerosis mild, without significant aortic valvular stenosis. * Otherwise , there is no signifiant valvular heart disease. Headache ESR normal Tylenol PRN Resolved CKD stage 3 Creatine 1.07 Stable HTN BP elevated Continue BP meds Clonidine 0.1 prn for BP above 165 Monitor BP Asthma No on any med Stable Dyslipidemia Continue statin DVT px on heparin sub CODE STATUS FULL CODE Disposition Plan to discharge home today Follow up with your PCP Dr. Schwartz on 05/18 @ 12:45 PM Total time spent on discharge = 35 minutes This includes examination of the patient, discharge planning, medication reconciliation, and communication with other providers. Discharge Instructions Discharge Instructions Date of Service May 15, 2017. Admission Reason for Admission: Stroke-Like Symptoms Discharge Discharge Diagnosis / Problem: Migraine/ Stroke like symptoms/ Hypertension Discharge Goals Goal(s): Decrease discomfort, Improve function, Improve disease control Activity Recommendations Activity Limitations: resume your previous activity (as tolerated ) . Instructions / Follow-Up Instructions / Follow-Up Discharge home today Follow up with your primary care provider Dr. Schwartz on 05/18 @ 12:45 PM Fall precaution Continue Physical therapy Use a walker to ambulate Monitor blood pressure Current Hospital Diet Patient's current hospital diet: AHA Diet (Heart Healthy) Discharge Diet Recommended Diet: AHA Diet (Heart Healthy) Pending Studies Studies pending at discharge: no Laboratory Results Hemoglobin A1c Test 05/15/17 05:38 Range/Units Estimated Average Glucose 111 mg/dl Hemoglobin A1c 5.5 4.5-5.6 % Lipid Panel Test 05/15/17 05:38 Range/Units Triglycerides Level 126 0-150 mg/dl Cholesterol Level 172 0-200 mg/dl HDL Cholesterol 67 mg/dl Cholesterol/HDL Ratio 2.6 LDL Cholesterol, Calculated 80 mg/dl Medical Emergencies . Who to Call and When: Medical Emergencies: If at any time you feel your situation is an emergency, please call 911 immediately. . Non-Emergent Contact Non-Emergency issues call your: Primary Care Provider Call Non-Emergent contact if: you have any medication questions . . "Provider Documentation" section prepared by Camden Pappas. . VTE Core Measure Inpt VTE Proph given/why not?: Unfractionated heparin SQ Signed: Signed: The status of this report is Draft * If report status is Draft, the document has not been finalized by the responsible provider. Additional Copies To Yovani Schwartz M.D.
[2017-11-23] MEDS ORDERED: CHOL100040 PO (11:27)
[2017-11-23] MEDS ORDERED: OXYB1TAB31 PO (12:16)
[2017-11-23] MEDS ORDERED: BENA-4 PO (12:16)
[2017-11-23] MEDS ORDERED: SIMV-150 PO (12:16)
[2017-11-23] MEDS ORDERED: TYLOTC500 PO (15:41)
[2017-11-23] MEDS ORDERED: CLOB-77 TOP (15:41)
[2017-11-23] MEDS ORDERED: AVSI100 INJ (15:41)
[2017-11-23] MEDS ORDERED: IBUP-1050 PO (16:40)
[2017-11-23] MEDS ORDERED: ASPI81TA28 PO (19:34)
[2017-11-25] MEDS ORDERED: RIBOCAP PO (12:23)
[2017-11-25] MEDS ORDERED: MGNO400 PO (12:23)
== END 2017-05-15 18:00 | disposition home or self-care (01) | DRG 103 ==
LOC: C.EDB 11:16 → C.MED 15:04 → ENRESERV 15:41
PROVIDERS: ADMIT Internal Medicine; ATTEND Internal Medicine
DX: G43.109 Migraine with aura, not intractable, without status migrainosus (principal); R47.01 Aphasia; I12.9 Hypertensive chronic kidney disease with stage 1 through stage 4 chronic kidney disease, or unspecified chronic kidney disease; N18.3 Chronic kidney disease, stage 3 (moderate); J45.909 Unspecified asthma, uncomplicated; E78.5 Hyperlipidemia, unspecified; Z87.891 Personal history of nicotine dependence; Z79.899 Other long term (current) drug therapy; Z82.49 Family history of ischemic heart disease and other diseases of the circulatory system

== ENCOUNTER 2017-09-09 15:39 | Emergency (ER) | payer OTHER ==
[~2017-09-09] VITALS: Ht 165.1 cm; Wt 76.0 kg
[~2017-09-09 15:39] MED LIST changes: -ACET-1256 PO; +ASPEC81 PO; +AVSI100; +BENA-4 PO; -BENA1TAB53 PO; -CALC1TAB9 PO; +CHOL100040 PO; +CLOB-77 TOP; -DTR/5 PO; +OXYB1TAB31 PO; -POLY99.02 OP; +SIMV-150 PO; -SIMV10TA2 PO; +TYLOTC500 PO; +[UNRECOGNIZED DRUG - CODE]
[2017-09-09 15:43] VITALS: TEMP 36.3; Ht 165.1 cm; Wt 76.0 kg
[2017-09-09] MEDS ORDERED: IBUP-1050 PO (16:40)
--- NOTE | 2017-09-09 16:44 | DIAGNOSTIC IMAGING REPORT ---
HEAD WITHOUT CONTRAST (CT) CT DOSE: 810.83 mGy.cm HISTORY: Trauma. Mental status change. EVAL TRAUMA TECHNIQUE: Multiaxial CT images of the head were performed without the use of intravenous contrast. A dose lowering technique was utilized adhering to the principles of ALARA. Comparison: 05/14/2017 Findings: The paranasal sinuses and mastoid air cells are clear. The calvarium and skull base are intact. The ventricles and sulci are within normal limits. There is no mass, hematoma, midline shift, or acute infarct. Mild age-related atrophy and chronic small vessel change. Impression: No acute intracranial abnormality. Mild age-related change. The above report was generated using voice recognition software. It may contain grammatical, syntax or spelling errors. Electronically signed by: Kofi Schaffer M.D. 09/09/2017 4:42 PM Dictated Date/Time: 09/09/2017 4:41 PM
--- NOTE | 2017-09-09 16:50 | EMERGENCY ROOM VISIT NOTE ---
ED Visit Note First contact with patient: 15:54 Staff note: I have reviewed the Patients chart and have discussed this case with my PA. I generally agree with the ED note and findings.
--- NOTE | 2017-09-09 17:10 | DIAGNOSTIC IMAGING REPORT ---
L SHOULDER MIN 2 VIEWS ROUTINE CLINICAL HISTORY: LEFT, EVAL FX trauma COMPARISON: None. DISCUSSION: Moderate degenerative change glenohumeral and acromioclavicular joint. No evidence for acute fracture or dislocation. There is no evidence for soft tissue swelling. IMPRESSION: Moderate degenerative change. No acute process. The above report was generated using voice recognition software. It may contain grammatical, syntax or spelling errors. Electronically signed by: Kofi Schaffer M.D. 09/09/2017 5:09 PM Dictated Date/Time: 09/09/2017 5:07 PM
--- NOTE | 2017-09-09 17:11 | DIAGNOSTIC IMAGING REPORT ---
R SHOULDER MIN 2 VIEWS ROUTINE CLINICAL HISTORY: RIGHT, EVAL PAIN AND DECREASED ROM COMPARISON: None. DISCUSSION: Moderate degenerative change glenohumeral and acromioclavicular joint. Mild calcific supraspinatus tendinitis. No evidence for fracture or dislocation. There is no evidence for soft tissue swelling. IMPRESSION: Moderate degenerative change. No acute process. The above report was generated using voice recognition software. It may contain grammatical, syntax or spelling errors. Electronically signed by: Kofi Schaffer M.D. 09/09/2017 5:09 PM Dictated Date/Time: 09/09/2017 5:09 PM
--- NOTE | 2017-09-09 17:34 | EMERGENCY ROOM VISIT NOTE ---
ED Visit Note First contact with patient: 15:54 CHIEF COMPLAINT: Left shoulder pain after a fall yesterday HISTORY OF PRESENT ILLNESS: Patient is a [id number] 87-year-old white female who presents the emergency department accompanied by her daughter for evaluation of left shoulder pain after a fall yesterday. Patient reports that she was out of town at a wedding. She was walking out of her hotel room, when the heavy door swung closed and hit her, causing her to stumble across the dietz. She states that she fell into the wall, striking her left shoulder, then fell down to the ground. She does not believe that she hit her head but is not sure, she did not lose consciousness. Ultimately, she was able to get up on her own, but had difficulty. She states that her left shoulder began to hurt immediately. She also had some right shoulder discomfort as well, she has had problems with the right shoulder after injuring it remotely, she has never had sought medical attention for this. She states that she cannot lift the right shoulder above shoulder height due to pain on a regular basis. She took Tylenol and ibuprofen yesterday with mild relief of her discomfort. Today she reports increased generalized stiffness and soreness. No headache, lightheadedness, dizziness, nausea or vomiting. She is primarily concerned about the left shoulder because of the pain. She essentially cannot move the shoulder at all. There is no discomfort in the elbow. She rates her pain a 5/ 10. Her daughter states that she has been acting appropriately since the incident. They drove back from [place] today and came to the emergency department for evaluation of her injuries. REVIEW OF SYSTEMS: Review of systems as per HPI. All other systems reviewed were negative. 10 systems reviewed. PMH: Electronic medical records are reviewed and summarized as above/below. See Problem List. SOCIAL HISTORY: Patient lives at home with her spouse for whom she is the primary caregiver. PHYSICAL EXAM: Vital Signs: Reviewed nurse's notes. CONSTITUTIONAL: Patient is a pleasant, well-appearing 87-year-old white female who is awake and alert and in no acute distress. HEAD: Normocephalic, no signs of injury or scalp lesions. EYES: Pupils round equal and react to light, extraocular movements full, no injection. NECK: Supple, nontender, no lymphadenopathy. CERVICAL SPINE: There is no bony tenderness to palpation over the spinous processes of the cervical spine. Bilateral paraspinous and trapezius muscle tenderness without spasm. Full range of motion. MUSCULOSKELETAL: Examination of the left shoulder does not note any obvious deformity. There is no soft tissue swelling or ecchymosis appreciated. Clavicles nontender to palpation, there is no pain over the acromioclavicular joint. She has discomfort to palpation over the proximal humerus, more in the humeral neck region. She can be passively internally and externally rotated fully but is painful. Examination of the right shoulder does not reveal any obvious deformity. Internal and external rotation are full. She cannot tolerate passive forward flexion or abduction greater than 90, and cannot hold against resistance. The right upper extremities are neurovascularly intact. NEUROLOGICAL: Alert, oriented, and cooperative. Cranial nerves, sensation and strength grossly intact. EMERGENCY DEPARTMENT COURSE: The patient was seen and evaluated as above. She presents the emergency department for evaluation of bilateral shoulder pain, left worse than right after stumbling and falling yesterday. She does not believe that she directly struck her head, but did fall down to the ground. She is on a baby aspirin daily. Given this, head CT was performed and was negative for acute pathology. X-rays of the right and left shoulders were obtained. Arthritic changes were noted, no evidence for acute fracture. The patient was placed in an arm sling on the left. She has had chronic issues with the right shoulder in the past, and now has left shoulder pain due to the acute injury. She was encouraged to continue to ice and use [id number] medications for discomfort. She Was Also Encouraged to Follow-Up with [facility] for Further Care and Evaluation of Her Shoulders, differential diagnoses entertained included proximal humerus fracture, shoulder dislocation, acromioclavicular separation, clavicle fracture, tendinitis, bursitis, rotator cuff pathology, adhesive capsulitis, among others. Medication reconciliation: I attest that I have personally reviewed the patient' s current medication list. Blood pressure screening: Patient was found to have a slightly elevated blood pressure due to circumstances. I do not believe that the patient requires hypertension monitoring. HEAD WITHOUT CONTRAST (CT) CT DOSE: 810.83 mGy.cm HISTORY: Trauma. Mental status change. EVAL TRAUMA TECHNIQUE: Multiaxial CT images of the head were performed without the use of intravenous contrast. A dose lowering technique was utilized adhering to the principles of ALARA. Comparison: 05/14/2017 Findings: The paranasal sinuses and mastoid air cells are clear. The calvarium and skull base are intact. The ventricles and sulci are within normal limits. There is no mass, hematoma, midline shift, or acute infarct. Mild age-related atrophy and chronic small vessel change. Impression: No acute intracranial abnormality. Mild age-related change. ] L SHOULDER MIN 2 VIEWS ROUTINE CLINICAL HISTORY: LEFT, EVAL FX trauma COMPARISON: None. DISCUSSION: Moderate degenerative change glenohumeral and acromioclavicular joint. No evidence for acute fracture or dislocation. There is no evidence for soft tissue swelling. IMPRESSION: Moderate degenerative change. No acute process. ] R SHOULDER MIN 2 VIEWS ROUTINE CLINICAL HISTORY: RIGHT, EVAL PAIN AND DECREASED ROM COMPARISON: None. DISCUSSION: Moderate degenerative change glenohumeral and acromioclavicular joint. Mild calcific supraspinatus tendinitis. No evidence for fracture or dislocation. There is no evidence for soft tissue swelling. IMPRESSION: Moderate degenerative change. No acute process. Problem List Medical Problems: (1) Abdominal pain Status: Resolved (2) Asthma Status: Chronic (3) Back pain Status: Resolved (4) Dysarthria Status: Resolved (5) Fracture of metacarpal, first, left hand Status: Resolved (6) HTN (hypertension) Status: Chronic (7) Hyperlipidemia, Unspecified Status: Chronic (8) Migraine Status: Resolved (9) Stroke-like symptoms Status: Resolved (10) Vaginal bleeding Status: Resolved Current/Historical Medications Scheduled Aspirin (Aspirin EC Low Dose), 81 MG PO QAM Benazepril/Hctz (Lotensin Hct), 2 TAB PO QAM Cholecalciferol (Vitamin D-1000), 2 TAB PO DAILY Oxybutynin Chloride (Oxybutynin Chloride ER), 5 MG PO DAILY Simvastatin (Simvastatin), 10 MG PO HS Scheduled PRN Acetaminophen (Tylenol), 1,000 MG PO DAILY PRN for Pain Clobetasol Propionate (Temovate), 1 APPLN TOP BID PRN for affected area Ibuprofen (Advil), 200-600 MG PO Q4H PRN for Pain Miscellaneous Medications Bevacizumab (Avastin) Allergies Coded Allergies: No Known Allergies (Unverified , 06/15/15) Vital Signs Date Time Temp Pulse Resp B/P (MAP) Pulse Ox O2 Delivery O2 Flow Rate FiO2 09/09/17 17:42 63 18 180/87 97 Room Air 09/09/17 15:43 36.3 68 18 186/79 97 Room Air Departure Information Impression Primary Impression: Contusion of left shoulder Additional Impressions: Right shoulder pain Fall Referrals Yovani Schwartz M.D. (PCP) Patient Instructions My [facility] Additional Instructions Ibuprofen(Motrin, Advil) may be used for fever or pain. Use 600mg every six hours as needed. Take with food. Avoid using more than 2400mg in a 24 hour period. Do not use 2400mg per day for more than three consecutive days without physician direction. Prolonged inappropriate use can lead to stomach upset or ulcers. This medication can be taken if you need to drive, work, or perform activities which may be dangerous when taking narcotic pain medication. (AND/OR) Acetaminophen(Tylenol) may be used for fever or pain. Use 1000mg every six hours as needed. Avoid using more than 3000mg in a 24 hour period. This medication can be taken if you need to drive, work, or perform activities which may be dangerous when taking narcotic pain medication. Ice compresses for 20 minutes at a time four times daily for 2-3 days. Use the sling as instructed. Remove your arm from the sling 4-6 times a day and move all the joints around to keep them loose. Rest and elevate your injury. Continue current medications. Return to the ER immediately for any numbness, tingling, severe pain, extreme swelling in the extremity or as needed. Call [facility] next week to arrange follow up for your injury. Problem Qualifiers
[2017-09-09 17:42] VITALS: BP 180/87; PULSE 63; O2SAT 97
== END 2017-09-09 18:03 | disposition home or self-care (01) ==
LOC: C.EDB 15:40 → C.EDD 18:03
DX: S40.012A Contusion of left shoulder, initial encounter (principal); M25.511 Pain in right shoulder; W01.198A Fall on same level from slipping, tripping and stumbling with subsequent striking against other object, initial encounter; Y92.59 Other trade areas as the place of occurrence of the external cause; M19.011 Primary osteoarthritis, right shoulder; M19.012 Primary osteoarthritis, left shoulder; J45.909 Unspecified asthma, uncomplicated; I10 Essential (primary) hypertension; E87.5 Hyperkalemia; Z79.82 Long term (current) use of aspirin